=== PATIENT | female | born 1955 | race Hispanic/Latino ===

== ENCOUNTER 2018-01-09 08:54 | Outpatient (CLI) | payer OTHER ==
--- NOTE | 2018-01-09 11:14 | RAD ---
TWO VIEWS RIGHT HIP: Date: 01-09-18 Comparison: None. History: Acute right sided hip pain. FINDINGS: There is degenerative change at the L4-5 level assuming five lumbar type vertebral bodies, with disc space narrowing, degenerative endplate change, vacuum disc formation and osteophytosis. There is a mild to moderate degree of superior joint space narrowing involving the right hip. There i s subchondral sclerosis and mild subchondral cystic change involving the acetabulum with lateral acet abular osteophyte formation. There is no displaced fracture or evidence of dislocation seen. IMPRESSION: Degenerative changes as described above. No acute fracture or dislocation seen. POS: [facility]
--- NOTE | 2018-01-09 12:14 | ULT ---
PELVIC ULTRASOUND WITH DOPPLER: (transabdominal, transvaginal, perez scale, color flow, and spectral Doppler) HISTORY: Pelvic pain. FINDINGS: The uterus measures 8.8 x 3.4 x 5.2 cm. There is an ectogenous focus with posterior shadowing measur ing 7 x 4 x 4 cm, likely within a uterine fibroid. Endometrium measures 4 mm in thickness. No fluid is seen. The right ovary is not visualized. The left ovary measures 1.5 x 1.4 x 1.4 cm. Flow is demonstrated to the left ovary. No adnexal mass or free fluid in the cul-de-sac identified. IMPRESSION: Findings are suggestive of uterine fibroid. POS: [facility]
== END 2018-01-09 08:55 | disposition home or self-care (01) ==
LOC: MADULT 08:54
PROVIDERS: ATTEND Family Medicine
DX: R10.9 Unspecified abdominal pain (principal); M54.31 Sciatica, right side; M25.551 Pain in right hip; M16.11 Unilateral primary osteoarthritis, right hip
CPT/HCPCS: 76856

== ENCOUNTER 2021-01-29 19:10 | Emergency (ER) | payer OTHER, SELFPAY ==
[2021-01-29] MEDS ORDERED: Sodium Chloride 0.9% 1,000 ML ONE ×2 (19:44→20:25)
[2021-01-29] MEDS ORDERED: Ondansetron PF 4 MG/2 ML Vial ONE (19:45)
[2021-01-29 19:52] LABS: #Eosinphils 0.1 thou/uL (0.0-0.7); #Lymphocytes 1.9 thou/uL (1.20-3.40); #Monocytes 0.5 thou/uL (0.11-0.59); %Basophils 0.9 % (0.0-1.0); %Eosinophils 0.9 % (0.0-10.0); %Monocytes 8.7 % (0.0-10.0); %Neutrophils 54.5 % (42.0-75.0); Hemoglobin 14.1 g/dL (12.0-16.0); Mean Corpuscular HGB CONC 32.5 g/dL (32.0-36.0); Mean Corpuscular Hemoglobin 27.8 pg (27.0-31.0); Mean Corpuscular Volume 85.6 fL (78.0-98.0); Mean Platelet Volume 7.3 fL (7.4-10.4); Platelet Count 230 thou/uL (130-400); Red Blood Cell (RBC) Count 5.07 mill/uL (4.20-5.40); White Blood Cell (WBC) Count 5.5 thou/uL (4.8-10.8)
[2021-01-29 20:09] LABS: ALT (SGPT) 17 U/L (8-55); AST (SGOT) 23 U/L (5-34); Albumin 4.1 g/dL (3.4-4.8); Alkaline Phosphatase 51 U/L (40-110); Anion Gap 21 mmol/L (10-20); BUN (Urea Nitrogen) 50 mg/dL (9.8-20.1); Bilirubin, Total 0.4 mg/dL (0.2-1.2); CK (CPK) 32 U/L (29-168); Calc. Creatinine Clearance 0 mL/min (70-130); Calcium 9.1 mg/dL (7.8-10.44); Carbon Dioxide 18 mmol/L (23-31); Chloride 102 mmol/L (98-107); Globulin 3.8 g/dL (2.4-3.5); Glucose 90 mg/dL (80-115); Lipase 24 U/L (8-78); Potassium 4.2 mmol/L (3.5-5.1); Protein, Total 7.9 g/dL (5.8-8.1); Sodium 137 mmol/L (136-145)
[2021-01-29 21:56] LABS: Bilirubin Negative (Negative); Blood, Urine Negative (Negative); Clarity Clear (Clear); Glucose, Urine (Dipstick) Negative (Negative); Ketone, Urine Negative (Negative); Leukocyte Negative (Negative); Nitrite Negative (Negative); Protein, Urine (Dipstick) Negative (Neg-Trace); Urobilinogen 0.2 mg/dL (Less than 2); pH, Urine 5.5 (5.0-9.0)
[2021-01-30 23:10] LABS: SARS-CoV-2 PCR by NAA DETECTED (NotDetected)
== END 2021-01-29 22:21 | disposition home or self-care (01) ==
LOC: MADERS 19:10
DX: U07.1 COVID-19 (principal); K52.9 Noninfective gastroenteritis and colitis, unspecified; E78.5 Hyperlipidemia, unspecified; I10 Essential (primary) hypertension; Z79.52 Long term (current) use of systemic steroids; Z79.899 Other long term (current) drug therapy
CPT/HCPCS: 71045; 80053; 81003; 82150; 82550; 83690; 84484; 85025; 87635; 96374; J2405; J7050; U0003; U0005

== ENCOUNTER 2025-10-20 13:30 | Outpatient (CLI) | payer OTHER | END 2025-10-20 13:31 | disposition home or self-care (01) | LOC: MADRAD 13:30 | PROVIDERS: ATTEND Family Medicine | DX: M25.552 Pain in left hip (principal) ==